=== PATIENT | female | born 1980 | race Caucasian/White ===

== ENCOUNTER → 2016-03-10 | Outpatient (CLI) | payer OTHER ==
[2015-03-14 18:20] VITALS: BP 134/63
[~2016-03-10] MED LIST: CITA10TA8 PO; IOHEXOL 180 MG/ML 10 ML VIAL. ONE; methylPREDNISolone ACETATE 40 MG/ML VIAL. ONE; methylPREDNISolone ACETATE 80 MG/ML VIAL. ONE
--- NOTE | 2016-03-11 04:19 | PAIN ---
DATE OF SERVICE: 03/10/2016 INITIAL CONSULTATION FOR PAIN CLINIC. CHIEF COMPLAINT: Back and bilateral lower extremity pain, right greater than left. HISTORY OF PRESENT ILLNESS: This is a 35-year-old female who presents with history of pain in the low back and legs for about 3 years, gradually increasing and much worse over the past 6 months or so. The patient reports it is not a result of any specific injury or action that she is aware of. It has been gradual increase in pain in the low back, bilateral lower extremities, radiating from the low back into the posterior gluteus, posterior thighs, lateral thighs, posterior lower legs to the ankles bilaterally and somewhat worse in the left knee, but worse on the right side of the body with right lower extremity pain, more pronounced on that side, but it can be just as bad on the left side at times. The patient reports constant stabbing, shooting, throbbing, sharp and dull alternating with tingling and numbness in the legs as well. The patient reports it awakens her from sleep at least 3-5 times a night, the back is mainly what awakens her from sleep. The patient also has some constipation when her back flares up, but no loss of urinary or bowel incontinence. It does affect her ability to walk significantly, but she is not using any assistive devices to ambulate. The patient has tried chiropractic therapy, exercising and has been enrolled in physical therapy to start currently. The patient reports that she tried Valium, Flexeril, hydrocodone, ibuprofen, all which did help to some extent. She has not had any in about 3 weeks, however, as she has certainly had some adverse effects from them with sedation especially. The patient reports that she is taking care of her handicapped 7-year-old daughter and requires a lot of lifting of child and this has been affecting her back significantly as well with increased stress and pressure on her lumbar spine. The patient reports disability rating from 0 to 10, 10 being the worst is an 8-10 with family and home responsibilities, 8 with recreation or self-care, 9 with life support activities, 6 with social activity, occupation and sexual behavior. PAST MEDICAL HISTORY: Significant for peptic ulcers, gastroesophageal reflux, anxiety. PREVIOUS SURGERY: Includes section, uterine ablation, tubal ligation and hernia repair. CURRENT MEDICATIONS: Include citalopram, tetracycline, diazepam and ibuprofen. ALLERGIES: The patient has no known drug allergies. FAMILY HISTORY: Significant for lung cancer. SOCIAL HISTORY: The patient does not smoke, does not drink alcohol. She is , lives with her 3 children at home in [place], [place]. REVIEW OF SYSTEMS: The patient's review of systems is positive for those items mentioned in history of present illness. All systems reviewed and otherwise negative. It is complete, full and well documented on the patient's chart. PHYSICAL EXAMINATION: VITAL SIGNS: Today, the patient's blood pressure 124/82, pulse 60, respirations 16, temperature is 98.5 degrees Fahrenheit, height is 5 feet 3 inches, weight is 132 pounds. GENERAL: The patient is awake, alert, oriented, appropriate, very pleasant demeanor. HEENT: Head shows normocephalic, atraumatic. Extraocular movements are intact, symmetrical. Oral cavity, mucous membranes are moist and pink. Dentition is intact. NECK: Shows anterior throat supple without palpable lymphadenopathy noted. Swallow reflex is symmetrical. Neck shows full rotational motion of cervical spine without tenderness or difficulty including extension and flexion. Right and left lateral rotation greater than 45 degrees. CHEST: Shows normal with inspection. Breath sounds are clear to auscultation bilaterally. HEART: Shows S1 and S2 clear. No murmurs auscultated. ABDOMEN: Normal on inspection, soft, nontender, nondistended. section scar is noted. No rebound or guarding. No palpable organomegaly noted. BACK: Shows spine grossly midline. Normal appearing thoracic kyphosis and lumbar lordotic curvature without any previous bruises, lesions, rashes or scars demonstrated. Lumbar paraspinous muscle shows some moderate tenderness with palpation in the low lumbar distribution, in the mid lumbar distribution, but only with deep palpation without significant radiation. No atrophy, hypertrophy, no asymmetry with the musculature on appearance. No trigger points, no radiation of pain, no tenderness over the spinous processes themselves. No tenderness over the sacrum or sacroiliac regions with deep palpation. The patient shows good rotation and motion of the lumbar spine, both laterally greater than 10 degrees right and left as well as extension greater than 10 degrees, forward flexion 45 degrees without exacerbation of pain. Lower extremities show deep tendon reflexes at 2+ in the patellar, 1+ tendo-calcaneus tendons. Motor exam is approximately 4 on a scale of 5 with bilateral dorsiflexion and extension, but 5/5 with quadriceps and hamstring flexion and symmetrical. Peripheral pulses are 2+ posterior tibial and dorsalis pedis pulses. No peripheral edema is noted. No clubbing, no cyanosis. Lower extremities are warm and dry to touch, equal in color and appearance. Straight leg raise noted to be positive mildly at about 45 degrees, which is relieved with knee flexion. Gaenslen's and Pankaj's maneuvers are negative bilaterally as well. The patient is able to stand, stand on her toes without difficulty or loss of balance, shows good ability to ambulate without favoring the right or left lower extremity and a normal appearing gait for short walk in the office today. IMPRESSION: 1. This is a 35-year-old female with approximately 3-year history of increasing pain in low back, bilateral lower extremities, in a radicular fashion, right greater than left. 2. MRI scan of the lumbar spine showing L5-S1 generalized disk bulge with a superimposed focal central to right paracentral disk protrusion, degenerative changes throughout the spine as well. 3. History of peptic ulcer disease. 4. Anxiety. PLAN: Options were discussed with the patient including conservative medical management versus continued physical therapies, interventional techniques and would like to pursue interventional techniques as she is enrolled in physical therapy already. We discussed the lumbar epidural steroid injection using description as well as anatomical models to describe the procedure. Risks were then discussed including, but not limited to bleeding, infection, possibility of epidural hematoma and subsequent neurologic compromise, dural puncture, headaches, spinal cord and/or nerve damage, side effects of steroid medication and poor results regarding pain control. The patient understands and wishes to proceed. The patient will return to clinic in approximately 2 weeks for followup. She is counseled on return appointment, activity level, and side effects to be aware of. DIAGNOSIS: Lumbar radiculopathy with lumbar degenerative disk disease. PROCEDURES: Lumbar epidural steroid injection. With fluoroscopic guidance, under sterile prep and drape at the L5-S1 level, translaminar approach using local anesthetic and fluoroscopy. Medication injected is 120 mg Depo-Medrol plus 10 mL of preservative-free normal saline and 2 mL of Isovue for contrast. CONDITION AT DISCHARGE: Stable. The patient tolerated procedure well, had no complications. GAIL LOVE MD DR: Rossy JOB#: [id number] / [id number]
== END ==
LOC: PNCL 10:22
PROVIDERS: ATTEND Anesthesiology
DX: M51.16 Intervertebral disc disorders with radiculopathy, lumbar region (principal); Z87.11 Personal history of peptic ulcer disease; K21.9 Gastro-esophageal reflux disease without esophagitis; F41.9 Anxiety disorder, unspecified; Z80.1 Family history of malignant neoplasm of trachea, bronchus and lung; Z98.51 Tubal ligation status; Z98.890 Other specified postprocedural states
CPT/HCPCS: 62323; J1030; J1040

== ENCOUNTER → 2016-03-24 | Outpatient (CLI) | payer OTHER ==
[2015-03-14 18:20] VITALS: BP 134/63
--- NOTE | 2016-03-25 22:36 | PAIN ---
DATE OF SERVICE: 03/24/2016 DIAGNOSIS: Lumbar radiculopathy with lumbar degenerative disk disease. HISTORY OF PRESENT ILLNESS: The patient is a 35-year-old female who returns for followup status post lumbar epidural steroid injection x 1. The patient reports about 50% improvement in the low back and right lower extremity. The patient reports there is still some pain across the low back bilaterally, but more on the right side and the right hip and right posterior lateral thigh. The patient reports it is a 5 on a scale of 10, throbbing and aching in quality without radiation further than the knee on the right side. No new motor or sensory deficits. No new bowel or bladder incontinence or other complaints. The patient reports otherwise doing fairly well, increasing activity with greater ease and comfort and sleeping better at night and is overall pleased with her progress thus far. PHYSICAL EXAMINATION: VITAL SIGNS: The patient's blood pressure is 120/86, pulse 77, respirations 16, temperature 98.6 degrees Fahrenheit, weight is 133 pounds. GENERAL: The patient is awake, alert, oriented, appropriate, very pleasant demeanor. HEENT: Shows normocephalic, atraumatic. Extraocular movements are intact, symmetrical. Oral cavity: Mucous membranes moist and pink. Dentition is intact. NECK: Shows anterior throat supple without palpable lymphadenopathy noted. Swallow reflex is symmetrical. Neck shows full rotational motion of the cervical spine. CHEST: Shows normal on inspection. Breath sounds are clear to auscultation bilaterally. HEART: Shows S1 and S2 clear. ABDOMEN: Soft, nontender, nondistended. No palpable organomegaly is noted. BACK: Shows spine grossly midline. Lumbar paraspinous muscle shows some moderate tenderness with palpation in the middle and lower distribution, more on the right than the left, but appears symmetrical on inspection. No atrophy or hypertrophy, no trigger points with palpation. The patient has good rotation and motion of the lumbar spine both laterally as well as extension and flexion without difficulty or pain reported. EXTREMITIES: Lower extremities show deep tendon reflexes 2+ in the patellar, 1+ tendo calcaneus tendons are equal. Motor exam is approximately 4 on a scale 5 with bilateral dorsiflexion and extension, but 5/5 with quadriceps and hamstring flexion and symmetrical and intact. PLAN: Options were discussed with the patient. The patient's old chart was reviewed as was her current medication regimen and updated. Current review of systems is updated today as well. We will plan on a second lumbar epidural steroid injection today with fluoroscopic guidance. Risks were again discussed including, but not limited to bleeding, infection, possibility of epidural hematoma, subsequent neurologic compromise, dural puncture, headaches, spinal cord and/or nerve damage, side effects of steroid medication and poor results regarding pain control. The patient understands and wished to proceed. The patient will return to clinic in approximately 2 weeks for followup, was counseled on return appointment, activity level and side effects to be aware of. DIAGNOSIS: Lumbar radiculopathy with lumbar degenerative disk disease. PROCEDURES: Lumbar epidural steroid injection, translaminar approach at the L5-S1 level with fluoroscopic guidance under sterile prep and drape using local anesthetic. Medications injected is 120 mg of Depo-Medrol plus 10 mL of preservative-free normal saline, and 2 mL of Isovue for contrast. Condition at discharge is stable. The patient tolerated the procedure well, had no complications. GAIL LOVE MD DR: AZIZA/mora JOB#: [id number] / [id number]
== END | disposition home or self-care (01) ==
LOC: PNCL 09:30
PROVIDERS: ATTEND Anesthesiology
DX: M51.16 Intervertebral disc disorders with radiculopathy, lumbar region (principal)
CPT/HCPCS: 62323; J1030; J1040

== ENCOUNTER → 2016-08-28 | Outpatient (CLI) | payer OTHER ==
[2015-03-14 18:20] VITALS: BP 134/63
== END | disposition home or self-care (01) ==
LOC: PNCL 08:22
PROVIDERS: ATTEND Anesthesiology
DX: M51.16 Intervertebral disc disorders with radiculopathy, lumbar region (principal)
CPT/HCPCS: 62323; J1030; J1040

== ENCOUNTER → 2017-07-31 | Outpatient (CLI) | payer OTHER ==
[2017-07-31] MEDS: GADOBUTROL 7.5 MMOL/7.5 ML VIAL IV (15:43)
== END | disposition home or self-care (01) ==
LOC: KCIC MRI 15:11
DX: G43.819 Other migraine, intractable, without status migrainosus (principal); H57.12 Ocular pain, left eye
CPT/HCPCS: 70553; A9585

== ENCOUNTER → 2017-08-30 | Outpatient (CLI) | payer OTHER ==
[~2017-08-30] MED LIST changes: -CITA10TA8 PO; +IOHEXOL 180 MG/ML 10 ML VIAL.; -IOHEXOL 180 MG/ML 10 ML VIAL. ONE; +LIDOCAINE 1% PF 2 ML VIAL.; +methylPREDNISolone ACETATE 40 MG/ML VIAL.; -methylPREDNISolone ACETATE 40 MG/ML VIAL. ONE; +methylPREDNISolone ACETATE 80 MG/ML VIAL.; -methylPREDNISolone ACETATE 80 MG/ML VIAL. ONE
== END | disposition home or self-care (01) ==
LOC: PNCL 08:58
DX: M51.16 Intervertebral disc disorders with radiculopathy, lumbar region (principal); G43.809 Other migraine, not intractable, without status migrainosus
CPT/HCPCS: 62323; J1030; J1040; Q9965

== ENCOUNTER → 2017-09-20 | Outpatient (CLI) | payer OTHER ==
[2017-09-20] MEDS: SINCALIDE 1.2 MCG in IV NORMAL SALINE 50ML 30 ML IV (10:00)
== END | disposition home or self-care (01) ==
LOC: US 06:47
DX: R10.13 Epigastric pain (principal); R14.0 Abdominal distension (gaseous); G43.809 Other migraine, not intractable, without status migrainosus; F41.9 Anxiety disorder, unspecified; K21.9 Gastro-esophageal reflux disease without esophagitis; Z87.11 Personal history of peptic ulcer disease; Z80.1 Family history of malignant neoplasm of trachea, bronchus and lung
CPT/HCPCS: 76700; 78226; 96374; 96375; A9537; J2805

== ENCOUNTER → 2017-10-09 | Outpatient (CLI) | payer OTHER ==
[2015-03-14 18:20] VITALS: BP 134/63
[~2017-10-09] MED LIST changes: +CITA10TA8 PO; -IOHEXOL 180 MG/ML 10 ML VIAL.; -LIDOCAINE 1% PF 2 ML VIAL.; -methylPREDNISolone ACETATE 40 MG/ML VIAL.; -methylPREDNISolone ACETATE 80 MG/ML VIAL.
--- NOTE | 2017-10-09 11:57 | KCIC ---
MRI Lumbar Spine without contrast History: Sciatica bilaterally, low back pain for years, bilateral lower extremity radiculopathy Technique: Multiplanar, multi sequential noncontrast MR imaging was performed of the lumbar spine. Contrast: None Comparison: February 02, 2016 Findings: Lumbar vertebral body stature and AP alignment are maintained. There is moderate to severe degenerative disc disease L5-S1 as seen previously. There is degenerative endplate change L5-S1, also endplate edema more likely reactive/degenerative in etiology. Conus terminates at L1. L3-L4: Neural foramina and spinal canal are adequate. L4-L5: Spinal canal and neural foramina are adequate. L5-S1: There is a broad protrusion with associated annular tear more eccentric to the right lateral recess more prominent than previously. Protrusion measures about 0.9 cm CC by 0.5 cm AP by about 1.7 cm transverse. There is increased indentation upon the ventral thecal sac greater in the right lateral recess, mild right lateral recess stenosis, contact of the descending right S1 nerve root. There is mild inferior narrowing of the proximal right neural foramen, left neural foramen adequate. Impression: 1. There is more prominent broad protrusion eccentric to the right lateral recess at L5-S1 with contact of the descending right S1 nerve root, mild right lateral recess stenosis. There is mild proximal narrowing of the inferior right L5-S1 neural foramen. There is again degenerative disc disease L5-S1, degenerative endplate change and endplate edema at this level. Electronically signed by: Sami English MD (10/09/2017 11:54 AM) [email or web address]
== END | disposition home or self-care (01) ==
LOC: KCIC MRI 10:43
PROVIDERS: ATTEND Nurse Practitioner Family
DX: M51.27 Other intervertebral disc displacement, lumbosacral region (principal); M48.07 Spinal stenosis, lumbosacral region; G43.809 Other migraine, not intractable, without status migrainosus; K21.9 Gastro-esophageal reflux disease without esophagitis; R60.0 Localized edema; Z87.11 Personal history of peptic ulcer disease; Z80.1 Family history of malignant neoplasm of trachea, bronchus and lung
CPT/HCPCS: 72148

== ENCOUNTER → 2020-05-27 | Outpatient (CLI) | payer MEDICAID, OTHER ==
[2015-03-14 18:20] VITALS: BP 134/63
--- NOTE | 2020-05-27 14:05 | KCIC ---
MR LUMBAR SPINE [id number] History: Reason: LUMBAR DISC HERNIATION / Spl. Instructions: / History: LBP with left leg numbness a nd pain. Prior surgery 2018. Technique: Multiplanar, multi sequential MR imaging was performed of the lumbar spine. Comparison: October 01, 2017 Findings: Normal vertebral body height and alignment. No fracture. Increased L5-S1 degenerative endplate edema. Conus terminates at the normal location. No evidence of nerve root clumping. L1-L2: No canal or neuroforaminal narrowing. L2-L3: No canal or neuroforaminal narrowing. L3-L4: No canal or neuroforaminal narrowing. L4-L5: No canal or neuroforaminal narrowing. L5-S1: Postoperative changes right hemilaminectomy laminectomy with microdiscectomy. Tiny residual r ight subarticular/foraminal disc protrusion. Mild right neuroforaminal narrowing, decreased compared to prior. Slight abutment of the exiting right L5 nerve root, decreased compared to prior. No canal n arrowing. Impression: 1. Interval postoperative changes right L5-S1 hemilaminectomy with microdiscectomy. 2. Tiny residual right L5-S1 subarticular/foraminal disc protrusion contacting the exiting right L5 nerve root. Correlate for radiculopathy. 3. Increased L5-S1 degenerative endplate edema. Electronically signed by: Ray Jiménez DO (05/27/2020 2:03 PM) [id number]
== END ==
LOC: KCIC MRI 10:57
PROVIDERS: ATTEND Nurse Practitioner Gerontology
DX: M51.26 Other intervertebral disc displacement, lumbar region (principal); M48.061 Spinal stenosis, lumbar region without neurogenic claudication
CPT/HCPCS: 72148

== ENCOUNTER → 2021-05-23 | Outpatient (CLI) | payer OTHER ==
[2015-03-14 18:20] VITALS: BP 134/63
[~2021-05-23] MED LIST changes: +GADOTERATE 7.5 MMOL/15ML VIAL. IVP ONE
--- NOTE | 2021-05-23 15:57 | KCIC ---
MRI BRAIN WO+W Date: 05/23/2021 1:30 PM Indication: INTRACTABLE MIGRAINE. LEFT EAR INFECTION X ONE YR PER PT. 12CC CLARISCAN Comparison: MRI brain 07/31/2017. Technique: Multiplanar multisequence MRI of the brain was performed with and without intravenous cont rast using the standard protocol. 12 cc Clariscan contrast was administered intravenously during the exam. Findings: No acute infarct. No acute or chronic hemorrhage. The ventricles are normal in size and configuration without hydrocephalus. Unchanged mild scattered FLAIR hyperintensities in the subcortical and perive ntricular deep white matter. No abnormal enhancement. The scalp and calvarium are normal. The pituitary and sella are normal. No Chiari malformation. The v isualized upper cervical spine is normal. The visualized orbits and globes are normal. The visualized paranasal sinuses are clear. The mastoid air cells are clear. Normal flow voids within the vertebral, basilar, and internal carotid arteries indicating patency. IMPRESSION: 1. No acute infarct or hemorrhage. No mass or abnormal enhancement. 2. Unchanged mild scattered FLAIR hyperintensities in the subcortical and periventricular deep white matter, a nonspecific finding but most likely seen as sequela of chronic migraines or chronic small v essel ischemic disease. Distribution is atypical for demyelinating disease. Electronically signed by: Sami Carranza MD (05/23/2021 3:55 PM) [id number]
== END ==
LOC: KCIC MRI 13:04
PROVIDERS: ATTEND Family Medicine
DX: R90.82 White matter disease, unspecified (principal); G43.011 Migraine without aura, intractable, with status migrainosus
CPT/HCPCS: 70553; A9575

== ENCOUNTER → 2021-06-09 | Outpatient (CLI) | payer OTHER ==
[2015-03-14 18:20] VITALS: BP 134/63
[~2021-06-09] MED LIST changes: +GABA-585 PO; -GADOTERATE 7.5 MMOL/15ML VIAL. IVP ONE; +HYDR-2761 PO; +LACT1CAP6 PO; +LINZESS145 MCG PO; +OMEP40CA7 PO; +VALIUM10 MG PO
--- NOTE | 2021-06-09 11:59 | PDOC ---
Progress Note - Pain Clinic Date of Service: DOS: DATE: 06/09/21 TIME: 11:54 Diagnosis: Dx: Lumbar radiculopathy with lumbar degenerative disease and lumbar postlaminectomy syndrome History or Present Illness: HPI: 40-year-old female presents with pain low back right lower extremity posterior gluteus posterior thigh posterior calf to the foot for about 1 year now patient had a MRI scan of the lumbar spine dated May 2020 showing postoperative changes of the L5-S1 level with hemilaminectomy and microdiscectomy with tiny re sidual right L5-S1 subarticular foraminal disc protrusion contacting the exiting right L5 nerve root. Patient reports she has had significant pain but is been on and off in intensity the last month or 2 is becoming more persistent patient reports weakness in the right leg with walking standing and continued fatigue as time goes on patient reports a 10 on scale 10 is worse over the past week 8 on average 6 its least and is a [address] aching sharp in the back dull and tight and shooting in the leg tingling stabbing in the right lower extremity constant severe on and off in intensity better in the morning but then worse as the day goes on with standing and walking patient has had physical therapy since her MRI scan doing the exercises at home currently, also has used TENS unit with the physical therapy none of which is helped significantly more than just a few hours patient is has not chiropractic treatment the past as well which is also been very limited and helpful patient reports he has been taking [id number] Tylenol as well as ibuprofen also has a muscle relaxer which does not agree with her she stopped taking that and is on gabapentin currently feels may help in with about 25% if that. Patient reports no loss of motor function with significant debility of the right lower extremity with standing walking and changing positions wakes her from sleep at least 2-3 times a night especially if she lays on her right side. Patient reports no bowel or bladder incontinence. Physical Exam: VS: Blood pressure is 142/89 pulse 67 respirations 18 temperature is 97.6 was Fahrenheit height is 5 feet 4 inches weight is 151 pounds. PE: PHYSICAL EXAMINATION: GENERAL: The patient is awake, alert, oriented, appropriate, very pleasant in demeanor HEENT: Shows normocephalic, atraumatic. Extraocular movements are intact and symmetrical. Oral cavity: Mucous membranes moist and pink. Dentition is intact. NECK: Shows anterior throat supple without palpable lymphadenopathy noted. Swallow reflex symmetrical. CHEST: Shows normal on inspection. Breath sounds are clear bilaterally. HEART: Shows S1, S2 clear. No murmurs auscultated. ABDOMEN: Soft, nontender, nondistended. No palpable organomegaly is noted. BACK: Shows spine grossly in the midline. Normal-appearing cervical lordotic curvature. There is slightly increased thoracic kyphosis, some minor flattening of the lumbar lordotic curvature with well-healed midline surgical scar noted. Lumbar paraspinous muscles show symmetrical on inspection, on palpation shows some moderate tenderness diffusely throughout the upper, middle and lower distribution of the paraspinous muscles, but without specific trigger points, without radiation of pain. The patient has good rotational motion of the lumbar spine, both laterally as well as extension and flexion without significant difficulty. No tenderness over the spinous processes, sacrum or sacroiliac regions. EXTREMITIES: Lower extremities show deep tendon reflexes 2+ in the patellar and tendo calcaneus tendons. Motor exam is 4 on a scale of 5 with right dorsiflexion, extension, quadriceps and hamstring flexion and 5/5 on the left. Peripheral pulses are 1+ posterior tibial. No peripheral edema is noted bilaterally. Lower extremities are warm and dry to touch, equal in color and appearance. Straight leg raise noted to be positive on the right about 40 degrees, left side is negative. SKIN: Shows warm and dry, good turgor. No edema. No sores, rashes or bruising throughout. Procedure: Procedure: Options were discussed with the patient. Patient's old chart was reviewed as her current medication regimen updated current review of systems updated today as well. We will preauthorize patient for lumbar epidural steroid injection as she has clinical L5-S1 radiculopathy on the right side. Patient is status post physical therapy as well as chiropractic treatments TENS placement and oral analgesics. Discussed option and will prescribe hydrocodone 5 mg patient was given instructions well side effects be aware of also Medrol Dosepak will be called in with instructions side effects aware of discussed as well. Patient will follow up after preauthorization we will plan on translaminar approach L5- S1 lumbar epidural steroid injection at that time with fluoroscopic guidance. Medication Injected: Med Injected: None Condition at Discharge: Condition at Discharge: Condition at discharge is stable. GAIL LOVE MD Jun 09, 2021 11:59
== END | disposition home or self-care (01) ==
LOC: PNCL 10:01
PROVIDERS: ATTEND Anesthesiology
DX: M51.16 Intervertebral disc disorders with radiculopathy, lumbar region (principal); M96.1 Postlaminectomy syndrome, not elsewhere classified; Z79.899 Other long term (current) drug therapy
CPT/HCPCS: 99214; G0463